=== PATIENT | male | born 1940 | race Caucasian/White ===

== ENCOUNTER → 2016-05-07 | Outpatient (CLI) | payer MEDICARE, BC | LOC: GMAB 10:26 | PROVIDERS: ATTEND Family Medicine | DX: R53.82 Chronic fatigue, unspecified (principal); Z12.5 Encounter for screening for malignant neoplasm of prostate | CPT/HCPCS: 84403; 84443; G0103 ==

== ENCOUNTER → 2017-09-02 | Outpatient (CLI) | payer MEDICARE, BC | LOC: GMAB 11:38 | PROVIDERS: ATTEND Family Medicine | DX: Z12.5 Encounter for screening for malignant neoplasm of prostate (principal); R53.82 Chronic fatigue, unspecified | CPT/HCPCS: 84443; G0103 ==

== ENCOUNTER 2017-10-15 11:43 | Emergency (ER) | payer MEDICARE, BC ==
[2017-10-15] MEDS ORDERED: SODIUM CHLORIDE 0.9% 1000ML 1,000 ML IVS ONE (11:52)
--- NOTE | 2017-10-15 11:56 | ED.PDOC ---
History of Present Illness - General Chief Complaint: Exposure to Heat or Cold Stated Complaint: Overheated possibly Time Seen by Provider: 10/15/17 11:46 Source: patient, RN notes reviewed, Vital Signs reviewed, EMS notes reviewed, family Exam Limitations: no limitations - History of Present Illness Timing/Duration: 1/2 hour Severity: moderate Improving Factors: rest Worsening Factors: movement Associated Symptoms: diaphoresis, nausea/vomiting, syncope - near syncope, other - pt reports that was out in the heat today for 2 hours, became dizzy, light headed, nauseated. feels that became overheated. States no headache, numbness, weakness, shortness of breath. no history of CVA, GA, CAD, PUD; takes no medications asided from otc suppliments and a baby asa daily. Normally active. Currently after cooling down and 500cc NS by EMS has had resolve of symptoms Allergies/Adverse Reactions: Allergies NO KNOWN ALLERGY Allergy (Verified 10/15/17 12:06) Home Medications: Ambulatory Orders Niacin [Nicotinic Acid Sr] 2,000 mg PO BEDTIME 04/03/14 Aspirin [Aspirin EC Low Dose] 81 mg PO BEDTIME 10/15/17 Multiple Vitamins W/ Minerals [Centrum Silver 50+Men] 1 tab PO DAILY 10/15/17 Review of Systems - Review of Systems Constitutional: States: diaphoresis EENTM: States: see HPI Respiratory: States: no symptoms reported Cardiology: States: syncope. Denies: chest pain, edema, palpitations Gastrointestinal/Abdominal: States: nausea, vomiting. Denies: abdominal pain, constipation, diarrhea Genitourinary: States: no symptoms reported Musculoskeletal: States: no symptoms reported Skin: States: other - diaphoresis Neurological: Denies: depressed, headache, numbness, paresthesia, tingling, tremors, weakness Endocrine: States: no symptoms reported Hematologic/Lymphatic: States: no symptoms reported Past Medical History (General) - Patient Medical History Hx Seizures: No Hx Stroke: No Hx Dementia: No Hx Asthma: No Hx of COPD: No Hx Cardiac Disorders: No Hx Congestive Heart Failure: No Hx Pacemaker: No Hx Hypertension: No Hx Thyroid Disease: No Hx Diabetes: No Hx Gastroesophageal Reflux: No Hx Renal Disease: No Hx of HIV: No Hx MRSA: No - Social History Hx Tobacco Use: No - Quit in the 1960s Family Medical History - Family History Mother Family History: Unknown Living Status: Physical Exam - Physical Exam General Appearance: Alert, Well Developed, Well Groomed, Well Nourished Eye Exam: bilateral normal Ears, Nose, Throat: hearing grossly normal, normal ENT inspection, other - dry membranes Neck: non-tender, full range of motion, supple, normal inspection Respiratory: chest non-tender, lungs clear, normal breath sounds, no respiratory distress, no accessory muscle use Cardiovascular/Chest: normal peripheral pulses, regular rate, rhythm, no edema, no gallop, no JVD, no murmur Peripheral Pulses: radial,right: 2+, radial,left: 2+ Gastrointestinal/Abdominal: normal bowel sounds, non tender, soft, no organomegaly, no pulsatile mass Back Exam: normal inspection, no CVA tenderness, no vertebral tenderness Extremity: normal range of motion, non-tender, normal inspection, no pedal edema , no calf tenderness 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 Will return if acute return of symptoms, problem, concern Departure - Departure Clinical Impression: Dehydration Heat exposure Qualifiers: Encounter type: initial encounter Qualified Code(s): T67.9XXA - Effect of heat and light, unspecified, initial encounter Heat exhaustion Qualifiers: Encounter type: initial encounter Qualified Code(s): T67.5XXA - Heat exhaustion , unspecified, initial encounter Time of Disposition: 13:56 Disposition: Discharge to Home or Self Care Condition: Excellent Departure Forms: ED Discharge - Pt. Copy, Patient Portal Self Enrollment Instructions: DI for Heat Exhaustion and Heat Stroke Diet: resume usual diet Activity: increase activity as tolerated Referrals: Deshaun Rashid MD [Primary Care Provider] - 1-2 Weeks Home Medications: Ambulatory Orders Niacin [Nicotinic Acid Sr] 2,000 mg PO BEDTIME 04/03/14 Aspirin [Aspirin EC Low Dose] 81 mg PO BEDTIME 10/15/17 Multiple Vitamins W/ Minerals [Centrum Silver 50+Men] 1 tab PO DAILY 10/15/17
[2017-10-15 14:16] VITALS: BP 131/87; TEMP 97.8; O2SAT 99
== END 2017-10-15 14:15 | disposition home or self-care (01) ==
LOC: ER 11:43
DX: E86.0 Dehydration (principal); Z87.891 Personal history of nicotine dependence; T67.5XXA Heat exhaustion, unspecified, initial encounter; X30.XXXA Exposure to excessive natural heat, initial encounter; Y92.9 Unspecified place or not applicable
CPT/HCPCS: 36415; 80053; 81001; 82550; 82553; 84484; 85025; 93005; J7030

== ENCOUNTER → 2019-09-02 | Outpatient (CLI) | payer MEDICARE, BC ==
--- NOTE | 2019-09-02 10:18 | RAD ---
EXAM DESCRIPTION: Knee,Right Complete CLINICAL HISTORY: KNEE PAIN COMPARISON: None. TECHNIQUE: 4 views right FINDINGS: Loss of medial joint space is observed. There is some chondrocalcinosis in the lateral joint compartment. Patellofemoral joint arthritis is seen. No joint effusion is seen. No fracturing is detected. 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 Electronically signed by: Matt Garcia MD 09/02/2019 10:16 AM CDT
--- NOTE | 2019-09-02 10:19 | RAD ---
EXAM DESCRIPTION: Pelvis CLINICAL HISTORY: HIP PAIN COMPARISON: None. TECHNIQUE: AP pelvis FINDINGS: Surgical clips are observed in the left side of the pelvis. Minimal acetabular osteophyte formation is observed in both hips. A transitional segment is observed at the lowest lumbar vertebral level. No fracture is detected. IMPRESSION: Surgical changes are observed in the left side of the pelvis. The exam also reveals a transitional segment the lower lumbar spine. Electronically signed by: Matt Garcia MD 09/02/2019 10:17 AM CDT
--- NOTE | 2019-09-02 15:34 | US ---
EXAM DESCRIPTION: Venous,Lower Extremity RT: ULTRASOUND. CLINICAL HISTORY: LOCALIZED SWELLING, MASS AND LUMP RIGHT LOWER LIMB CALF COMPARISON: None Available. TECHNIQUE: Jalloh-scale and doppler sonographic evaluation of the deep venous system of the right lower extremity. FINDINGS: Doppler evaluation shows normal color flow and normal phasicity and augmentation of the right common femoral vein, femoral vein, popliteal vein, greater saphenous vein, junction with the CFV. Also normal color flow and normal phasicity and augmentation of the peroneal, and posterior tibial vein. The right lower extremity deep veins were completely compressible; normal occlusion with transducer pressure. Jalloh-scale survey showed no echogenic thrombus within these veins. IMPRESSION: 1. Duplex ultrasound evaluation of the right lower extremity deep venous system showing no evidence of thrombosis. Electronically signed by: Lobito Johnston MD 09/02/2019 3:33 PM CDT
== END ==
LOC: RAD 09:50
PROVIDERS: ATTEND Orthopaedic Surgery
DX: M25.551 Pain in right hip (principal); M43.8X6 Other specified deforming dorsopathies, lumbar region; Z98.890 Other specified postprocedural states; M17.11 Unilateral primary osteoarthritis, right knee; R22.41 Localized swelling, mass and lump, right lower limb